=== PATIENT | female | born 1990 ===

== ENCOUNTER → 2021-08-26 | Outpatient (CLI) | payer OTHER | END | disposition home or self-care (01) | LOC: PRENATAL 10:40 | PROVIDERS: ATTEND Obstetrics & Gynecology Maternal & Fetal Medicine | DX: O35.0XX1 Maternal care for (suspected) central nervous system malformation in fetus, fetus 1 (principal); O35.3XX1 Maternal care for (suspected) damage to fetus from viral disease in mother, fetus 1; O98.512 Other viral diseases complicating pregnancy, second trimester; O28.1 Abnormal biochemical finding on antenatal screening of mother; Z36.89 Encounter for other specified antenatal screening; Z3A.20 20 weeks gestation of pregnancy ==

== ENCOUNTER 2021-11-02 11:11 | Outpatient (CLI) | payer OTHER ==
[2021-11-02] MEDS ORDERED: PRENATAL CAPLE1 EAC1 PO (11:45)
== END 2021-11-02 14:36 | disposition home or self-care (01) ==
LOC: OBS/DEL 11:11
PROVIDERS: ATTEND Obstetrics & Gynecology
DX: O26.849 Uterine size-date discrepancy, unspecified trimester (principal); O28.5 Abnormal chromosomal and genetic finding on antenatal screening of mother; O35.0XX0 Maternal care for (suspected) central nervous system malformation in fetus, not applicable or unspecified; O60.00 Preterm labor without delivery, unspecified trimester

== ENCOUNTER 2021-11-28 08:55 | Inpatient (IN) | payer OTHER ==
[~2021-11-28] VITALS: Ht 149.9 cm; Wt 80.7 kg
[~2021-11-28 08:55] MED LIST: PRENATAL CAPLE1 EAC1 PO
== END 2021-12-01 14:24 | disposition home or self-care (01) | DRG 786 ==
LOC: OBS/DEL 08:55 → LDR 10:58 → OBS/DEL 10:58 → OB/GYN 19:44
PROVIDERS: ADMIT Obstetrics & Gynecology; ATTEND Obstetrics & Gynecology
PROC: 4A1HXCZ Monitoring of Products of Conception, Cardiac Rate, External Approach (ICD-10-PCS; 2021-11-28)
PROC: BY4FZZZ Ultrasonography of Third Trimester, Single Fetus (ICD-10-PCS; 2021-11-28)
PROC: 10D00Z1 Extraction of Products of Conception, Low, Open Approach (ICD-10-PCS; principal; 2021-11-28 13:45)
DX: O34.211 Maternal care for low transverse scar from previous cesarean delivery (principal); O60.14X0 Preterm labor third trimester with preterm delivery third trimester, not applicable or unspecified; O35.1XX0 Maternal care for (suspected) chromosomal abnormality in fetus, not applicable or unspecified; O36.5930 Maternal care for other known or suspected poor fetal growth, third trimester, not applicable or unspecified; O36.8130 Decreased fetal movements, third trimester, not applicable or unspecified; O26.843 Uterine size-date discrepancy, third trimester; O28.5 Abnormal chromosomal and genetic finding on antenatal screening of mother; Z3A.36 36 weeks gestation of pregnancy; Z37.0 Single live birth; Z20.822 Contact with and (suspected) exposure to COVID-19

== ENCOUNTER 2024-09-03 08:03 | Outpatient (CLI) | payer OTHER | END 2024-09-03 08:10 | disposition home or self-care (01) | LOC: PRENATAL 08:03 | PROVIDERS: ATTEND Obstetrics & Gynecology Maternal & Fetal Medicine | DX: O36.80X0 Pregnancy with inconclusive fetal viability, not applicable or unspecified (principal); Z36.82 Encounter for antenatal screening for nuchal translucency; Z36.9 Encounter for antenatal screening, unspecified; Z14.8 Genetic carrier of other disease; O34.219 Maternal care for unspecified type scar from previous cesarean delivery; Z3A.14 14 weeks gestation of pregnancy ==

== ENCOUNTER 2024-10-17 15:32 | Outpatient (CLI) | payer OTHER | END 2024-10-17 15:34 | disposition home or self-care (01) | LOC: PRENATAL 15:32 | PROVIDERS: ATTEND Obstetrics & Gynecology Maternal & Fetal Medicine | DX: O44.00 Complete placenta previa NOS or without hemorrhage, unspecified trimester (principal); O34.219 Maternal care for unspecified type scar from previous cesarean delivery; Z3A.19 19 weeks gestation of pregnancy ==